=== PATIENT | female | born 1965 | race Caucasian/White ===

== ENCOUNTER → 2016-09-22 | Outpatient (CLI) | payer OTHER ==
[~2016-09-22] MED LIST: BRINTELLIX20 MG PO; CIPROFLOXACIN500 M2 PO; LORTAB 5/500 501 TAB PO; POTASSIUM CHLO10 ME3 PO; PYRIDIUM100 M2 PO; TORADOL10 M1 PO; VIMOVO 20 MG-501 TCP PO
--- NOTE | 2016-09-23 07:57 | RADIOLOGY REPORT PS360 ---
KNEE-4 OR 5 VIEWS-LT COMPARISON: None HISTORY: Chronic left knee pain TECHNIQUE: AP, PA and lateral weight-bearing views and sunrise view FINDINGS: There is moderate joint space narrowing medially with minor spurring the tibial spines and minor spurring the medial femoral condyle. There is slight narrowing of the patella femoral space. The talus appears intact and I see no effusion. IMPRESSION: Mild degenerative changes of the knee as described
== END ==
LOC: RAD 16:24
DX: M25.562 Pain in left knee (principal)

== ENCOUNTER → 2016-12-25 | Day surgery (SDC) | payer OTHER ==
--- NOTE | 2016-12-25 15:24 | RADIOLOGY REPORT PS360 ---
OANXNU-LH-5PB (THUMB)-3 VIEWS CLINICAL INDICATION: FLUORO GUIDED INJECTION OF RT FIRST DIGIT (THUMB) ORDERING PHYSICIAN: SANJANA SEVERINO MD PATIENT AGE: 51 years Fluoroscopy time: 7 seconds COMPARISON: None FINDINGS: 2 images are submitted. There are both lateral images slightly obliqued both showing a needle present over the first metacarpal carpal joint. IMPRESSION: Fluoroscopy utilized for first metacarpal carpal joint injection
[2016-12-25 15:31] VITALS: BP 114/82
--- NOTE | 2016-12-25 15:32 | Operative Note ---
Procedure/Operative Record Date of Procedure: 12/25/16 Pre-op diagnosis: Degenerative joint disease, carpometacarpal joint right thumb Post-op diagnosis: Degenerative joint disease, carpometacarpal joint right thumb Procedure performed: Fluoroscopic-guided injection of steroid and local anesthetic, carpometacarpal joint right thumb Surgeon: Remy Severino MD Anesthesia: Local- 2 cc of 1% lidocaine Indications: Patient is a 51-year-old female with symptomatic Right first CMC joint arthritis. Intra-articular steroid injection is indicated to relieve the pain and improve the function of her hand. Fluoroscopic guidance is used to accurately localize the joint. Findings: Degenerative changes in the first carpometacarpal joint of her right thumb as noted on the preoperative x-rays. Description of procedure: On the day of the procedure the patient was met in the preoperative area and positively identified. The limb was appropriately marked. Physical examination was performed and documented. I again reviewed the procedure, risks and benefits and alternatives in detail. She wished to proceed with the procedure as planned. All her questions were answered. Consent form was reviewed and signed. Patient was brought to the operating room and placed supine on the operating table. All the bony prominences were appropriately padded. A preprocedure timeout was performed. The skin was prepped in a sterile fashion with multiple chlorhexidine sticks and draped with sterile towels. The right wrist was placed on the C-arm tube and screened. The first carpometacarpal joint was identified under fluoroscopy and marked on the skin. I then injected 2 cc of 1% lidocaine into the skin and subcutaneous tissue for local anesthesia. I then placed a 25- gauge needle into the first CMC joint and confirmed the needle position under fluoroscopy. Fluoroscopic images of the needle placement were obtained and stored. I then injected a combination of 1.5 mg of betamethasone and 1 mL of 0.5 percent Marcaine into the first carpometacarpal joint, under aseptic precautions. Sterile dressing was applied. Patient tolerated the procedure well and there were no immediate complications. Patient reported very good pain relief within a few minutes after the injection. Following the procedure she was transferred onto the [facility] and transported to the postoperative recovery area in stable condition. After a period of observation, she was discharged home with appropriate instructions. Follow-up in the office as needed. EBL (ml): 0 Implant: None Complications: None Specimens: None at [id number]
== END ==
LOC: RAD 13:00 → SDC 13:00
PROVIDERS: Orthopaedic Surgery
PROC: 3E0U3BZ Introduction of Anesthetic Agent into Joints, Percutaneous Approach (ICD-10-PCS; 2016-12-25)
PROC: 3E0U33Z Introduction of Anti-inflammatory into Joints, Percutaneous Approach (ICD-10-PCS; principal; 2016-12-25 13:45)
DX: M19.041 Primary osteoarthritis, right hand (principal); Z79.899 Other long term (current) drug therapy

== ENCOUNTER → 2017-02-26 | Outpatient (CLI) | payer OTHER ==
--- NOTE | 2017-03-05 11:22 | RADIOLOGY REPORT PS360 ---
DIG MAMM-SCREEN ARIE W/CAD ORDERING PHYSICIAN : Kp Sneed MD PATIENT AGE: 51 years GENDER: Female COMPARISON: November 2015, October 2014, October HISTORY:No hormones. No new complaints. Previous excisional surgical biopsy right breast. Family history. Mother with breast cancer postmenopausal. Maternal & paternal grandmother; &. Maternal aunt with breast cancer. TECHNIQUE: Std CC & MLO images were obtained. R2 CAD reviewed. Also axillary cc view both breast FINDINGS: Moderately dense breast bilaterally. Mild asymmetry RIGHT BREAST: Area of focal density seen at the deep lateral right breast cc view dissipates on a subsequent axillary cc view., With similar to previous axillary cc view 2016. As well as 2009 With this follow-up in one year the adequate some this may reflect a mild architectural distortion from previous biopsy right breast as stated in history.. Scar upper-outer quadrant was marked on previous studies but not today.. Follow-up in not over one year recommended 11-12 months preferred LEFT BREAST: Stable appearance of left breast. Fibroglandular elements account for the density left breast superior. Stable IMPRESSION: No significant interval change. Bilateral follow-up in one recommended BI-RADS CATEGORY: 2_Benign RECOMMENDED FOLLOWUP: 11M 12 MONTH FOLLOW-UP (A letter has been sent to the patient regarding results of the study.)
== END ==
LOC: RAD 10:54
DX: Z12.31 Encounter for screening mammogram for malignant neoplasm of breast (principal)
CPT/HCPCS: G0202